=== PATIENT | male | born 1995 | race Caucasian/White ===

== ENCOUNTER 2022-04-12 18:38 | Emergency (ER) | payer OTHER ==
[~2022-04-12] VITALS: Ht 172.7 cm; Wt 81.8 kg
[2022-04-12 18:44] VITALS: BP 168/134; TEMP 97.4
[2022-04-12] MEDS ORDERED: LEXAPRO20 MG PO (19:03)
[2022-04-12] MEDS ORDERED: ROBAXIN 75750 MG/TAB PO (20:50)
[2022-04-12] MEDS ORDERED: PERCOCET 325 MG1 TA2 PO (20:50)
[2022-04-12] MEDS ORDERED: NAPROSYN500 MG PO (20:50)
[2022-04-12 21:42] VITALS: PULSE 98
== END 2022-04-12 21:03 | disposition home or self-care (01) ==
LOC: COL.ER 18:38
DX: S43.005A Unspecified dislocation of left shoulder joint, initial encounter (principal); X50.1XXA Overexertion from prolonged static or awkward postures, initial encounter; Y92.59 Other trade areas as the place of occurrence of the external cause; Y99.0 Civilian activity done for income or pay
CPT/HCPCS: J1885